=== PATIENT | female | born 1950 | race Caucasian/White ===

== ENCOUNTER 2023-12-29 07:56 | Outpatient (REF) | payer MEDICARE, OTHER, SELFPAY | END 2023-12-29 07:57 | disposition home or self-care (01) | LOC: HO.SH 07:56 | PROVIDERS: PCP Internal Medicine; Visit Provider Physician Assistant | DX: Z01.118 Encounter for examination of ears and hearing with other abnormal findings (principal); H90.3 Sensorineural hearing loss, bilateral | CPT/HCPCS: 92557 ==

== ENCOUNTER 2024-11-28 09:46 | Outpatient (REF) | payer MEDICARE, OTHER, SELFPAY ==
--- OUTSIDE RECORDS SUMMARY | 2024-11-28 10:33 | XMS_ITS | Encounter Summary ---
Author Organization [facility] [place] [address] Care Team Providers Care Sewer [employer] Cutter [employer]inger [employer] Material Name Role Phone Lu Vera MD Primary Care Provider [phone] Reason for Visit * Imaging (Routine) - Closed Specialty Diagnoses / Procedures Referred By Consuelo t Referred To Contact Radiology Diagnoses Encounter for screening mammogram for breast cancer Procedures MG Mammo Digital Screening w Dhiraj bilat MG Mammo Digital Screening w Dhiraj bilat Lu Vera MD [address] [place] [id number] Phone: tel: fax: [facility] Referral ID Status Reason Start Date Expiration Date Visits Re quested Visits Authorized [id number] Closed 08/04/2024 08/04/2025 1 1 Encounter Details Date Type Department Care Team (Latest Contact Info) Description 11/09/2024 10:00 AM EST - 11/09/2024 11:59 PM [facility] Hospital Encounter Radiology Department - [address] [address] Encounter for screening mammogram for breast cancer Discharge Disposition: Home or Self Care Social History Tobacco Use Types Packs/Day Years Used Date Smoking Tobacco: Former Cigarettes Q uit: 10/19/1973 Smokeless Tobacco: Never Alcohol Use Standard Drinks/Week Comments No 0 (1 standard drink = 0.6 oz pur e alcohol) Housing Instability Answer Date Recorde d Are you worried that in the next 2 months you may not have stable housing? No 09/19/2024 Food Access & Nutrition Answer Date Rec orded Do you have access to a vari ety of food including fruits and vegetables? Yes 09/19/2024 Access to Healthcare Answer Date Record ed Within the last 3 months, ho w many times did you visit the emergency department for your medical care? 0 09/19/2024 Health Literacy Answer Date Recorded How often do you need to hav e someone help you when you read instructions, pamphlets, or other written material from your doctor or pharmacy? Never 09/19/2024 Caregiver: How often do you need to have someone help you when you read instructions, pamphlets, or other written material from your doctor or pharmacy? Not on file 09/19/2024 Financial Risk Answer Date Recorded How hard is it for you to pa y for the very basics like food, housing, medical care, and air conditioning / heating? Not very hard 09/19/2024 Transportation Answer Date Recorded Has the lack of transportati on kept you from meetings, work, or from getting things needed for daily living? No Has the lack of transportati on kept you from medical appointments or from getting medications? No 09/19/2024 Social Isolation Answer Date Recorded How often do you feel lonely or isolated from th ose around you? Never 09/19/2024 Food Risk Answer Date Recorded Within the past 12 months we worried whether our food would run out before we got money to buy more. Never true 09/19/2024 Within the past 12 months th e food we bought just didn't last and we didn't have money to get more. Never true 09/19/2024 Dependent Care Answer Date Recorded Do you need help finding or paying for care for your loved ones. For example, child psychology teacher or elderly care for an older adult? No 09/19/2024 Education Answer Date Recorded Do you think completing more education or training, like finishing a GED, going to college, or learning a trade, would be helpful for you? No 09/19/2024 Employment and Income Answer Date Recor ded During the last four weeks, have you been actively looking for work? No 09/19/2024 Living Situation Answer Date Recorded What is your living situation? 1 11/20/2023 Comments No Sex and Gender Information Value Date Recorded Sex Assigned at Not on file Legal Sex Female 10:44 AM EST Gender Identity Not on file Sexual Orientation Not on file documented as of this encounter Discharge Disposition Disposition Code Departure Means Destination Home or Self Care documented in this encounter Plan of Treatment Upcoming Encounters Date Type Department Care Team ([facility] st Contact Info) Description 02/17/2025 8:45 AM EDT Office Visit [place]st[place]s [place] [facility] [address] [place] [address] Jeannette Snow, MARIBELL [address] [place] [address] 02/27/2025 2:00 PM EDT Appointment [facility] [address] [place] [phone] Vladimir Chance DO [address] [facility] [address] [place] [address] documented as of this encounter Procedures Procedure Name Priority Date/Time Associated Diagnosis Comments MG MAMMO DIGITAL SCREENING W DHIRAJ BILAT Routine 11/09/2024 10:05 AM EST Encounter for screening mammogram for breast cancer documented in this encounter Results * MG Mammo Digital Screening w Dhiraj bilat (11/09/2024 10:05 AM EST) Anatomical Region Laterality Modality Breast Bilateral Mammography 11/09/2024 12:0 7 PM EST Impressions 11/09/2024 12:11 PM EST BILATERAL BREASTS: Benign, no evidence of malignancy. Normal interval follow-up is recommended in 12 months. BREAST DENSITY: B - There are scattered areas of fibroglandular density. BI-RADS CATEGORY: 2 - BENIGN RECOMMENDATION: Screening bilateral mammogram is recommended in 1 year. Mammo Location: [facility], [address] [place] [address], [id number], . -------- FINAL REPORT -------- Dictated By: Ayad Brantley Dictated Date: 11/09/2024 12:07 ET Assigned Physician: Ayad Brantley Reviewed and Electronically Signed By: Ayad Brantley Signed Date: 11/09/2024 12:11 ET Workstation ID: [id number] Transcribed By: Self Edit Transcribed Date: 11/09/2024 12:07 ET Narrative 11/09/2024 12:11 PM EST STUDY: Bilateral screening mammography with tomosynthesis and CAD History: Personal history of left lumpectomy for breast cancer in 2002. TECHNIQUE: Bilateral full-field digital screening mammography is obtained and read in conjunction with computer-aided detection. ??Tomosynthesis as well as 2-D C view imaging were obtained. ?? COMPARISON: Comparison made to multiple prior, most recent October 29, 2023, and most remote September 12, 2015. RIGHT BREAST: No significant masses, suspicious calcifications or other abnormalities are seen. LEFT BREAST: ??Post lumpectomy changes. No significant masses, suspicious calcifications or other abnormalities are seen. Procedure Note Ayad Brantley MD - 11/09/2024 STUDY: Bilateral screening mammography with tomosynthesis and CAD History: Personal history of left lumpectomy for breast cancer in 2002. TECHNIQUE: Bilateral full-field digital screening mammography is obtainedand read in conjunction with computer-aided detection. Tomosynthesis aswell as 2-D C view imaging were obtained. COMPARISON: Comparison made to multiple prior, most recent October, and most remote September 12, 2015. RIGHT BREAST: No significant masses, suspicious calcifications or otherabnormalities are seen. LEFT BREAST: Post lumpectomy changes. No significant masses, suspiciouscalcifications or other abnormalities are seen. IMPRESSION: BILATERAL BREASTS: Benign, no evidence of malignancy. Normal intervalfollow-up is recommended in 12 months. BREAST DENSITY: B - There are scattered areas of fibroglandular density. BI-RADS CATEGORY: 2 - BENIGN RECOMMENDATION: Screening bilateral mammogram is recommended in 1 year. Mammo Location: [facility], [address] [place] [address], [id number], . -------- FINAL REPORT -------- Dictated By: Ayad Brantley Dictated Date: 11/09/2024 12:07 ET Assigned Physician: Ayad Brantley Reviewed and Electronically Signed By: Ayad Brantley Signed Date: 11/09/2024 12:11 ET Workstation ID: [id number] Transcribed By: Self Edit Transcribed Date: 11/09/2024 12:07 ET Lu Vera MD IMG BI PROCEDURES Final Result documented in this encounter Visit Diagnoses Diagnosis Encounter for screening mammogram for breast cancer documented in this encounter Additional Health Concerns Assessment Noted Time PHQ-9 Depression Total Score: 0 09/19/20 24 4:41 PM EST documented as of this encounter Care Teams Sewer And Cutter Finger Buff Material Relationship Specialty Start Date End Date Lu Vera MD [address] [place] [address] PCP - General 08/10/00 documented as of this encounter
--- OUTSIDE RECORDS SUMMARY | 2024-11-28 10:33 | XMS_ITS | Clinical Summary ---
Author Organization [facility] [address] [place] [address] Address [address] [place], [place] Phone Care Team Providers Care Business Support Professional Name Role Phone Lu Vera MD Primary Care Provider [phone] Allergies Active Allergy Reactions Criticality Noted Date Comments Oxycodone-Aspirin 12/08/2005 Medications No known medications Active Problems Problem Noted Date Diagnosed Date History of carcinoma in situ of breast Overview (09/22/2024): 2007 BRCA negative 10/18/13 Thyroid nodule 11/11/2013 Goiter 11/10/2013 Intramural leiomyoma of uterus 04/09/2007 Chronic neck pain 12/08/2005 Encounters Date Type Department Care Team Description 11/09/2024 10:00 AM EST - 11/09/2024 11:59 PM EST Hospital Encounter Radiology Department - [address] [phone] Encounter for screening mammogram for breast cancer Discharge Disposition: Home or Self Care 10/17/2024 Telephone Gastroenterology [facility] [address] [place] [address] Trae Montero MD SPECIAL PROCEDURE 09/26/2024 4:00 PM EST - 09/26/2024 11:59 PM EST Hospital Encounter Radiology Department - [address] [phone] Goiter Discharge Disposition: Home or Self Care 09/22/2024 2:00 PM EST Office Visit Adult Medicine [address] [phone] Lu Vera MD Routine general medical examination at a health care facility (Primary Dx); Goiter; Screen for colon cancer; History of carcinoma in situ of breast from Last 3 Months Immunizations Name Administration Dates Next Due Influenza Quadravalent, 0.5m l (Fluzone High-dose) 65yo and older 08/20/2022 Influenza Quadravalent, MDCK , 0.5ml, preservative free (Flucelvax) 6mo and older 09/05/2021 Influenza trivalent, 0.5mL (Fluad) 65yo and olde r 09/22/2024,08/15/2021 Moderna (age 6mo & older) Bi valent, COVID-19, 0.5 mL or 0.25 mL dosage 08/19/2022 Pfizer (ages 12 & older) Bivalent, COVID-19 11/2021 Tdap Tetanus diptheria acell ular pertussis (Boostrix; Adacel) 7yo and older 05/01/2010 Surgical History Surgery Date Site/Laterality Comments OTHER SURGICAL HISTORY 2009 hysteroscopy - Polyps COLONOSCOPY 06/29/2003 Negative examination BREAST LUMPECTOMY 2002 Left dcis BREAST BIOPSY 2017 Right neg COLONOSCOPY 01/2014 SCREENING MAMMOGRAM 10/23/2022 Bilateral Medical History Medical History Date Comments Cervicalgia Thyroid nodule 11/11/2013 History of carcinoma in situ of breast 4 2007 Family History Medical History Relation Name Comments Breast cancer Aunt 1 paternal congential janelle fness Breast cancer Aunt 2 maternal second primary at age 88, 2 maternal aunts; Crohns CABG Father multiple MIs; A FIB Lung cancer Maternal Grandfather Other: sepsis Maternal Grandmother Breast cancer Mother second primary at age 66; HTN Heart attack Paternal Grandfather Relation Name Status Comments Aunt 1 paternal Aunt 2 maternal Brother x 1 Alive Father Maternal Grandfather Maternal Grandmother Mother Paternal Grandfather Paternal Grandmother Sister x 1 Alive Social History Tobacco Use Types Packs/Day Years Used Date Smoking Tobacco: Former Cigarettes Q uit: 10/19/1973 Smokeless Tobacco: Never Tobacco Cessation:Counseling Given: Not Answered Alcohol Use Standard Drinks/Week Comments No 0 [...] for your loved ones. For example, child care teacher or elderly care for an older [...] on file Sexual Orientation Not on file Obstetrics History Para Term AB IAB SAB Ectopic Multiple Livin g Live Births 4 4 4 4 Date Outcome GA Total Labor Labor/2nd/3rd Weight Sex Type Anes PTL Angelic A1 A5 Name Clin Term Term Term Term Last Filed Vital Signs Vital Sign Reading Time Taken Comments Blood Pressure 134/82 09/22/2024 2:31 PM EST Pulse 94 09/22/2024 2:11 PM EST Temperature 36.7 ??C (98.1 ??F) 09/22/2024 2:11 PM ES T Respiratory Rate 14 09/22/2024 2:11 PM EST Oxygen Saturation 95% 09/22/2024 2:11 PM EST Inhaled Oxygen Concentration - - Weight 62.4 kg (137 lb 8 oz) 09/22/2024 2:11 PM EST Height 160 cm (5' 3 ) 09/22/2024 2:11 PM EST Body Mass Index 24.36 09/22/2024 2:11 PM EST Plan of Treatment Upcoming Encounters Date Type Department Care Team (Late st Contact Info) Description 02/17/2025 8:45 AM EDT Office Visit Obstetrics and Gynecology - [id number] [place] [address] Jeannette Snow, [facility] [address] [place], [place] 02/27/2025 2:00 PM EDT Appointment [facility] [address] [place] [address] Vladimir Chance DO [address] [phone] Health Maintenance Due Date Last Done Comments Pneumococcal Vaccine: 50+ Years (1 of 2 - PCV) 1971 Zoster Vaccines (1 of 2) 1971 Colorectal Cancer Screening: Colonoscopy 02/10/2024 02/09/2014, 02/09/2014 Falls Risk Assessment 09/03/2024 09/03/2023 Medicare Annual Wellness Visit 09/03/2024 09/03/2023 DTaP,Tdap,and Td Vaccines (3 - Td or Tdap) 04/21/2025 10/22/2024, 05/01/2010 Depression Screening 09/19/2025 09/19/2024, 09/03/20 Social Influencers of Health Screening 09/19/2025 09/19/2024 Breast Cancer Screening 11/09/2026 11/09/19, 10/29/2023, 10/23/2022, Additional history exists RSV Immunization Patients 60+ Years Old (1 - 1-dose 75+ series) 2027 Cholesterol Screening (Lipid Panel) 09/14/2028 09/14/2023 Osteoporosis Screening (Bone Density Screening) 11/13/2033 11/13/2023, 02/19/2018 Hepatitis C Screening Completed 11/10/2013 Influenza Vaccine Completed 09/22/2024, , 09/05/2021, Additional history exists COVID-19 Vaccine Completed 10/22/2024, , 08/20/2022, Additional history exists HIB Vaccines Aged Out No longer eligi ble based on patient's age to complete this topic HPV Vaccines Aged Out No longer eligi ble based on patient's age to complete this topic Hepatitis A Vaccines Aged Out No long er eligible based on patient's age to complete this topic Hepatitis B Vaccines Aged Out No long er eligible based on patient's age to complete this topic IPV Vaccines Aged Out No longer eligi ble based on patient's age to complete this topic MMR Vaccines Aged Out No longer eligi ble based on patient's age to complete this topic Meningococcal ACWY Vaccine Aged Out N o longer eligible based on patient's age to complete this topic Meningococcal B Vacine Aged Out No lo nger eligible based on patient's age to complete this topic RSV Immunization Patients Under 20 months Aged Out No longer eligible based on patient's age to complete this topic Varicella Vaccines Aged Out No longer eligible based on patient's age to complete this topic Procedures Procedure Name Priority Date/Time Associated Diagnosis Comments MG MAMMO DIGITAL SCREENING W DHIRAJ BILAT Routine 11/09/2024 10:05 AM EST Encounter for screening mammogram for breast cancer US HEAD NECK SOFT TISSUE Routine 09/26/2024 6:19 PM EST Goiter CBC WITH AUTO DIFFERENTIAL Routine 09/26/2024 9:08 AM EST Screen for colon cancer History of carcinoma in situ of breast THYROID STIMULATING HORMONE Routine 09/26/2024 9:08 AM EST Goiter BASIC METABOLIC PANEL Routine 09/26/2024 9:08 AM EST Routine general medical examination at a [facility] care facility CBC AND DIFFERENTIAL Routine 09/26/2024 9:08 AM EST Screen for colon cancer History of carcinoma in situ of breast DXA BONE DENSITY STUDY 1+ SITS AXIAL SKEL Routine 11/13/2023 4:00 PM EST Asymptomatic menopausal state LIPID PANEL Routine 09/14/2023 HM DEPRESSION SCREENING Routine 09/03/2023 FALLS RISK ASSESSMENT Routine 09/03/2023 COLONOSCOPY Routine 02/09/2014 HEPATITIS C SCREENING Routine 11/10/2013 from Last 3 Months or Most Recently Relevant to Health Maintenance Results * MG Mammo Digital Screening w [...] is recommended in 1 year. Mammo Location: [facility], [address] [place] [address], [id number], . -------- FINAL REPORT -------- Dictated By: Ayad Brantley Dictated Date: 11/09/2024 12:07 ET Assigned Physician: Ayad Brantley Reviewed and Electronically Signed By: Ayad Brantley Signed Date: 11/09/2024 12:11 ET Workstation ID: [id number] Transcribed By: Self Edit Transcribed Date: 11/09/2024 [...] is recommended in 1 year. Mammo Location: [facility], [address] [place] [address], [id number], . -------- FINAL REPORT -------- Dictated By: Ayad Brantley Dictated Date: 11/09/2024 12:07 ET Assigned Physician: Ayad Brantley Reviewed and Electronically Signed By: Ayad Brantley Signed Date: 11/09/2024 12:11 ET Workstation ID: [id number] Transcribed By: Self Edit Transcribed Date: 11/09/2024 12:07 ET us Lu Vera MD IMG BI PROCEDURES Final Result * US Head Neck Soft Tissue (09/26/2024 6:19 PM EST) Anatomical Region Laterality Modality Head and Neck Ultrasound 09/26/2024 6:30 PM EST Impressions 09/26/2024 6:33 PM EST 6.1 x 2.4 x 4.3 cm right thyroid nodule has decreased slightly in size since the previous study. -------- FINAL REPORT -------- Dictated By: Arabella Doty Dictated Date: 09/26/2024 18:30 ET Assigned Physician: Arabella Doty Reviewed and Electronically Signed By: Arabella Doty Signed Date: 09/26/2024 18:33 ET Workstation ID: [id number] Transcribed By: Self Edit Transcribed Date: 09/26/2024 18:30 ET Narrative 09/26/2024 6:33 PM EST US HEAD NECK SOFT TISSUE THYROID SOFT TISSUES NECK HISTORY: ??Thyroid nodule follow-up. Prior: Thyroid ultrasound 10/26/2023. FINDINGS: The thyroid gland is heterogeneous in echotexture. 6.1 x 2.4 x 4.3 cm nodule right lobe, previously 6.0 x 3.5 x 4.9 cm. No nodule is identified in the left lobe of the thyroid. The right lobe of the thyroid measures 6.2 x 3.7 x 4.6 cm. ??The left lobe of the thyroid measures 3.1 x 0.7 x 1.3 cm. ??The thyroid isthmus measures 5 mm in thickness. Procedure Note Arabella Doty MD - 09/26/2024 US HEAD NECK SOFT TISSUE THYROID SOFT TISSUES NECK HISTORY: Thyroid nodule follow-up. Prior: Thyroid ultrasound 10/26/2023. FINDINGS: The thyroid gland is heterogeneous in echotexture. 6.1 x 2.4 x 4.3 cm nodule right lobe, previously 6.0 x 3.5 x 4.9 cm. No nodule is identified in the left lobe of the thyroid. The right lobe of the thyroid measures 6.2 x 3.7 x 4.6 cm. The left lobeof the thyroid measures 3.1 x 0.7 x 1.3 cm. The thyroid isthmus measures5 mm in thickness. IMPRESSION: 6.1 x 2.4 x 4.3 cm right thyroid nodule has decreased slightly in sizesince the previous study. -------- FINAL REPORT -------- Dictated By: Arabella Doty Dictated Date: 09/26/2024 18:30 ET Assigned Physician: Arabella Doty Reviewed and Electronically Signed By: Arabella Doty Signed Date: 09/26/2024 18:33 ET Workstation ID: [id number] Transcribed By: Self Edit Transcribed Date: 09/26/2024 18:30 ET us Lu Vera MD IM US PROCEDURES Final Result * (ABNORMAL) CBC auto differential (09/26/2024 9:08 AM EST) WBC 5.2 4.8 - 10.8 K/[facility] LAB HEMETOLOGY METHOD 09/26/2024 2:02 PM EST [facility] RBC 4.90(H) 3.80 - 4.80 M/[facility] LAB HEMETOLOGY METHOD 09/26/2024 2:[address] [facility] Hemoglobin 14.6 11.5 - 16.0 g/dL LAB HEMETOLOGY METHOD 09/26/2024 2:[address] [facility] Hematocrit 44.9 35.0 - 47.0 % LAB HEMETOLOGY METHOD 09/26/2024 2:[address] [facility] MCV 92.0 79.0 - 98.0 FL LAB HEMETOLOGY METHOD 09/26/2024 2:[address] [facility] MCH 29.9 27.0 - 32.0 pcg LAB HEMETOLOGY METHOD 09/26/2024 2:[address] [facility] MCHC 32.5 32.0 - 37.0 g/dL LAB HEMETOLOGY METHOD 09/26/2024 2:[address] [facility] RDW 12.5 11.0 - 15.0 % LAB HEMETOLOGY METHOD 09/26/2024 2:[address] [facility] Platelets 09/26/2024 2:[address] [facility] Comment:Not measured. Unable to quantitate due to platelet clumping MPV 11.7(H) 7.0 - 11.0 FL LAB HEMETOLOGY METHOD 09/26/2024 2:[address] [facility] NRBC 0.0 <1.0 % LAB HEMETOLOGY METHOD 09/26/2024 2:[address] [facility] NRBC Absolute 0.00 <0.10 K/mcL LAB HEMETOLOGY METHOD 09/26/2024 2:[address] [facility] Neutrophils Relative 54.5 % LAB HEMETOLOGY METHOD 09/26/2024 2:[address] [facility] Lymphocytes Relative 29.9 % LAB HEMETOLOGY METHOD 09/26/2024 2:[address] [facility] Monocytes Relative 12.5 % LAB HEMETOLOGY METHOD 09/26/2024 2:[address] [facility] Eosinophils Relative 2.3 % LAB HEMETOLOGY METHOD 09/26/2024 2:[address] [facility] Basophils Relative 0.4 % LAB HEMETOLOGY METHOD 09/26/2024 2:[address] [facility] Immature Granulocytes Relative 0.4 % LAB HEMETOLOGY METHOD 09/26/2024 2:[address] [facility] Neutrophils Absolute 2.82 1.50 - 7.00 K/mcL LAB HEMETOLOGY METHOD 09/26/2024 2:[address] [facility] Lymphocytes Absolute 1.55 1.00 - 5.00 K/mcL LAB HEMETOLOGY METHOD 09/26/2024 2:[address] [facility] Monocytes Absolute 0.65 0.20 - 1.00 K/mcL LAB HEMETOLOGY METHOD 09/26/2024 2:[address] [facility] Eosinophils Absolute 0.12 0.00 - 0.50 K/mcL LAB HEMETOLOGY METHOD 09/26/2024 2:[address] [facility] Basophils Absolute 0.02 0.00 - 0.20 K/mcL LAB HEMETOLOGY METHOD 09/26/2024 2:[address] [facility] Immature Granulocytes Absolute 0.02 0.00 - 0.03 K/mcL LAB HEMETOLOGY METHOD 09/26/2024 2:[address] [facility] Blood Venous blood specimen / Unknown Venipuncture / Unknown 09/26/2024 9:08 AM EST 09/26/2024 9:08 AM EST us Lu Vera MD LAB BLOOD ORDERABLES Final Resul t [facility] [address] [place] [address], * Thyroid stimulating hormone (09/26/2024 9:08 AM EST) TSH 2.25 0.40 - 4.00 mcIU/mL LAB CHEMISTRY METHOD 09/26/2024 1:[address] [facility] Blood Venous blood specimen / Unknown Venipuncture / Unknown 09/26/2024 9:08 AM EST 09/26/2024 9:08 AM EST us Lu Vera MD LAB BLOOD ORDERABLES Final Resul t [facility] [address] [place] [address], [place] [phone] * (ABNORMAL) Basic metabolic panel (09/26/2024 9:08 AM EST) Pathologist [facility] Sodium 143 133 - 145 mmol/L LAB CHEMISTRY METHOD 09/26/2024 1:[address] [facility] Potassium 4.3 3.5 - 5.5 mmol/L LAB CHEMISTRY METHOD 09/26/2024 1:[address] [facility] Chloride 109 96 - 110 mmol/L LAB CHEMISTRY METHOD 09/26/2024 1:[address] [facility] CO2 29 21 - 32 mmol/L LAB CHEMISTRY METHOD 09/26/2024 1:[address] [facility] Anion Gap 5 3 - 11 LAB CHEMISTRY METHOD 09/26/2024 1:[address] [facility] Glucose 103(H) 70 - 100 mg/dL LAB CHEMISTRY METHOD 09/26/2024 1:[address] [facility] BUN 15 5 - 25 mg/dL LAB CHEMISTRY METHOD 09/26/2024 1:[address] [facility] Creatinine 0.72 0.50 - 1.10 mg/dL LAB CHEMISTRY METHOD 09/26/2024 1:[address] [facility] eGFR 89 >=60 mL/min/1. 73m2 LAB CHEMISTRY METHOD 09/26/2024 1:[address] [facility] Comment:Calculation based on the??Chronic Kidney Disease Epidemiology Collaboration (CKD-EPI) equation refit??without adjustment for race. BUN/Creatinine Ratio 20.8 LAB CHEMISTRY METHOD 09/26/2024 1:[address] [facility] Calcium 9.9 8.5 - 10.5 mg/dL LAB CHEMISTRY METHOD 09/26/2024 1:[address] [facility] Blood Venous blood specimen / Unknown Venipuncture / Unknown 09/26/2024 9:08 AM EST 09/26/2024 9:08 AM EST us Lu Vera MD LAB BLOOD ORDERABLES Final Resul t [facility] [address] [place] [address], * DXA BONE DENSITY STUDY 1+ SITS AXIAL SKEL (11/13/2023 4:00 PM EST) Anatomical Region Laterality Modality Bone Densitometr y 09/03/2023 9:12 AM EST Narrative 11/17/2023 7:19 PM EST STUDY: ??DUAL ENERGY X-RAY ABSORPTIOMETRY / DXA REASON FOR EXAM: ?? Female, 73 years old ??menopausal/postmenopausal disorder TECHNIQUE: ?? Bone Mineral Density (BMD) measurements of the lumbar spine and left hip were obtained using [employer] Discovery W ([id number]/N [id number]). ?? COMPARISON: February 19, 2018 ?? FINDINGS: L1-L3-L4 BMD: 0.988 g/cm2 L1-L3-L4 T score: -0.6. ??This corresponds to Normal bone density. This represents a 3.1* % increase in bone density compared with prior exam from February 19, 2018. Left femoral neck BMD: 0.749 g/cm2 Left femoral neck T score: -0.9. ??This corresponds to Normal bone density. Left total hip BMD: 0.902 g/cm2 Left total hip T score: -0.3. ??This corresponds to Normal bone density. This represents a -0.2 % decrease in bone density compared with prior exam from February 19, 2018. * - Indicates a statistically significant change. IMPRESSION: IMPRESSION: Normal bone density Reference Information: The T-score is the number of standard deviations above or below the standard which is normal for young adults at their peak bone mineral density. The World Health Organization (WHO) interprets the T-scores as follows: At or above ??-1 SD ?Normal bone density Between -1 and -2.5 SD ??Osteopenia At or below -2.5 SD ?Osteoporosis Procedure Note Ayad Brantley MD - 06/06/2024 STUDY: DUAL ENERGY X-RAY ABSORPTIOMETRY / DXA REASON FOR EXAM: Female, 73 years old menopausal/postmenopausaldisorder TECHNIQUE: Bone Mineral Density (BMD) measurements of the lumbar spineand left hip were obtained using [employer] Discovery W ([id number]/N [id number]). COMPARISON: February 19, 2018 FINDINGS: L1-L3-L4 BMD: 0.988 g/cm2 L1-L3-L4 T score: -0.6. This corresponds to Normal bone density. This represents a 3.1* % increase in bone density compared with prior examfrom February 19, 2018. Left femoral neck BMD: 0.749 g/cm2 Left femoral neck T score: -0.9. This corresponds to Normal bonedensity. Left total hip BMD: 0.902 g/cm2 Left total hip T score: -0.3. This corresponds to Normal bone density. This represents a -0.2 % decrease in bone density compared with prior examfrom February 19, 2018. * - Indicates a statistically significant change. IMPRESSION: IMPRESSION: Normal bone density Reference Information: The T-score is the number of standard deviations above or below thestandard which is normal for young adults at their peak bone mineral density. The World HealthOrganization (WHO) interprets the T-scores as follows: At or above -1 SD Normal bone density Between -1 and -2.5 SD Osteopenia At or below -2.5 SD Osteoporosis Chelsea CARMONA IMG DXA PROCEDURES Final Resu lt * (ABNORMAL) Lipid panel (09/14/2023) [facility] LDL/HDL Ratio 3 0 - 4 Triglycerides 88 0 - 150 mg/dL Cholesterol 190 0 - 200 mg/dL HDL 60 >=40 mg/dL LDL Cholesterol 113(A) 0 - 100 mg/dL Blood Venous blood specimen / Unknown Result [facility] LAB BLOOD ORDERABLES Sujey l Result * Falls Risk Assessment (09/03/2023) [facility] Falls Risk Assessment ABSTRACTED Result [facility] Provider HEALTH MAINTENANCE Final Result * Depression Screening (09/03/2023) [facility] Depression Screening ABSTRACTED Result [facility] Provider HEALTH MAINTENANCE Final Result * Colonoscopy (02/09/2014) [facility] Colonoscopy no interpretation , abstracted Anatomical Region Laterality Modality Other Result [facility] Provider HEALTH MAINTENANCE Final Result * Hepatitis C Screening (11/10/2013) [facility] Hepatitis C Screening ABSTRACTED Result [facility] Provider HEALTH MAINTENANCE Final Result from Last 3 Months or Most Recently Relevant to Health Maintenance Insurance MEDICARE [facility] [address] [place] [address] Care Teams Business Support Professional Relationship Specialty Start Date End Date Lu Vera MD [address] [place] [address] PCP - General 08/10/00
--- NOTE | 2024-11-28 12:21 | MHC.AU.MED ---
Medical Clearance for Hearing Instrumentation Date: 11/28/24 Patient Name: Deepa Garcia Date of : 1950 Primary Care Provider: Referring Provider: Lu Vera MD We have seen your patient on 11/28/24 and have determined that they are a candidate for amplification (See accompanying report). Specifically, they would benefit from: Hearing aid use in both ears There is a statute that addresses Medical Evaluation Requirements prior to fitting a patient with a hearing aid. According to [place] statute 265 CMR:6.03(1), (a) General. Except as provided in 265 CMR 6.03(1)(b), a hearing aid assistant shall not sell a hearing aid unless the prospective user has presented to the hearing aid assistant a written statement signed by a licensed physician that states that the patient's hearing loss has been medically evaluated and the patient may be considered a candidate for a hearing aid. The medical evaluation must have taken place within the preceding six months. Please note: Due to the [place] Statute referenced above, we cannot accept a signature other than that of a licensed physician. [employer] and PA signatures cannot be accepted. I am in agreement with the above recommendation. There is no medical contraindication for hearing instrumentation. Physician Signature Date Physician Name (Printed)
== END 2024-11-28 09:47 | disposition home or self-care (01) ==
LOC: HO.SH 09:46
PROVIDERS: Visit Provider Internal Medicine
DX: Z01.118 Encounter for examination of ears and hearing with other abnormal findings (principal); H90.3 Sensorineural hearing loss, bilateral
CPT/HCPCS: 92552; 92556

== ENCOUNTER 2024-11-28 10:50 | Outpatient (REF) | payer SELFPAY | END 2024-11-28 10:51 | disposition home or self-care (01) | LOC: HO.HAP 10:50 | PROVIDERS: Visit Provider Internal Medicine | DX: Z46.1 Encounter for fitting and adjustment of hearing aid (principal); H90.3 Sensorineural hearing loss, bilateral | CPT/HCPCS: 92590 ==

== ENCOUNTER 2024-12-06 15:24 | Outpatient (REF) | payer SELFPAY ==
--- OUTSIDE RECORDS SUMMARY | 2024-12-06 16:16 | XMS_ITS | Clinical Summary ---
Author Organization [facility] [address] [place] [address] Address [address] [place], [place] Phone Care Team Providers Care Night Patrol Inspector Name Role Phone Lu Vera MD Primary Care Provider [phone] Allergies Active Allergy Reactions Criticality Noted Date [...] PM EST Hospital Encounter Radiology Department - [address] [phone] Encounter for screening mammogram for breast cancer Discharge Disposition: Home or Self Care 10/17/2024 Telephone Gastroenterology [facility] [address] [place] [address] Trae Montero MD SPECIAL PROCEDURE 09/26/2024 4:00 PM EST - 09/26/2024 11:59 PM EST Hospital Encounter Radiology Department - [address] [phone] Goiter Discharge Disposition: Home or Self Care 09/22/2024 2:00 PM EST Office Visit Adult Medicine [address] [phone] Lu Vera MD Routine general medical examination [...] care for your loved ones. For example, children's attendant or elderly care for an older adult? [...] EDT Office Visit Obstetrics and Gynecology - [address] [place] [address] Jeannette Snow, [facility] [address] [place], [place] 02/27/2025 2:00 PM EDT Appointment [facility] Endoscopy [address] [place] [address] Vladimir Chance DO [address] [address] Health Maintenance Due Date Last Done Comments Pneumococcal Vaccine: 50+ Years (1 of 2 - PCV) 1971 Zoster Vaccines (1 of 2) 1971 Colorectal Cancer Screening: Colonoscopy 02/10/2024 02/09/2014, 02/09/2014 Falls Risk Assessment 09/03/2024 09/03/2023 Medicare Annual Wellness Visit 09/03/2024 09/03/2023 Depression Screening 09/19/2025 09/19/2024, 09/03/20 Social Influencers of Health Screening 09/19/2025 09/19/2024 Breast Cancer Screening 11/09/2026 11/09/19, 10/29/2023, 10/23/2022, Additional history exists RSV Immunization Patients 60+ Years Old (1 - 1-dose 75+ series) 2027 Cholesterol Screening (Lipid Panel) 09/14/2028 09/14/2023 Osteoporosis Screening (Bone Density Screening) 11/13/2033 11/13/2023, 02/19/2018 DTaP,Tdap,and Td Vaccines (3 - Td or Tdap) 10/22/2034 10/22/2024, 05/01/2010 Hepatitis C Screening Completed 11/10/2013 Influenza Vaccine [...] EST Routine general medical examination at a [facility] care facility CBC AND DIFFERENTIAL Routine [...] is recommended in 1 year. Mammo Location: [facility], [address] [place] [address], [address], . -------- FINAL REPORT -------- Dictated By: Ayad Brantley Dictated Date: 11/09/2024 12:07 ET Assigned Physician: Ayad Brantley Reviewed and Electronically Signed By: Ayad Brantley Signed Date: 11/09/2024 12:11 ET Workstation ID: [id number] Transcribed By: Self Edit Transcribed Date: 11/09/2024 [...] is recommended in 1 year. Mammo Location: [facility], [address] [place] [address], [address], . -------- FINAL REPORT -------- Dictated By: Ayad Brantley Dictated Date: 11/09/2024 12:07 ET Assigned Physician: Ayad Brantley Reviewed and Electronically Signed By: Ayad Brantley Signed Date: 11/09/2024 12:11 ET Workstation ID: [id number] Transcribed By: Self Edit Transcribed Date: 11/09/2024 [...] -------- FINAL REPORT -------- Dictated By: Arabella Dtoy Dictated Date: 09/26/2024 18:30 ET Assigned Physician: Arabella Doty Reviewed and Electronically Signed By: Arabella Doty Signed Date: 09/26/2024 18:33 ET Workstation ID: [id number] Transcribed By: Self Edit Transcribed Date: 09/26/2024 [...] Signed Date: 09/26/2024 18:33 ET Workstation ID: [id number] Transcribed By: Self Edit Transcribed Date: 09/26/2024 18:30 ET us Lu Vera MD IM US PROCEDURES Final Result * (ABNORMAL) CBC auto differential (09/26/2024 9:08 AM EST) WBC 5.2 4.8 - 10.8 K/[facility] LAB HEMETOLOGY METHOD 09/26/2024 2:02 PM EST [facility] RBC 4.90(H) 3.80 - 4.80 M/[facility] LAB HEMETOLOGY METHOD 09/26/2024 2:02 PM [facility] Hemoglobin 14.6 11.5 - 16.0 g/dL LAB HEMETOLOGY METHOD 09/26/2024 2:02 PM [facility] Hematocrit 44.9 35.0 - 47.0 % LAB HEMETOLOGY METHOD 09/26/2024 2:02 PM [facility] MCV 92.0 79.0 - 98.0 FL LAB HEMETOLOGY METHOD 09/26/2024 2:02 PM [facility] MCH 29.9 27.0 - 32.0 pcg LAB HEMETOLOGY METHOD 09/26/2024 2:02 PM [facility] MCHC 32.5 32.0 - 37.0 g/dL LAB HEMETOLOGY METHOD 09/26/2024 2:02 PM [facility] RDW 12.5 11.0 - 15.0 % LAB HEMETOLOGY METHOD 09/26/2024 2:02 PM [facility] Platelets 09/26/2024 2:02 PM [facility] Comment:Not measured. Unable to quantitate due to platelet clumping MPV 11.7(H) 7.0 - 11.0 FL LAB HEMETOLOGY METHOD 09/26/2024 2:02 PM [facility] NRBC 0.0 <1.0 % LAB HEMETOLOGY METHOD 09/26/2024 2:02 PM [facility] NRBC Absolute 0.00 <0.10 K/mcL LAB HEMETOLOGY METHOD 09/26/2024 2:02 PM [facility] Neutrophils Relative 54.5 % LAB HEMETOLOGY METHOD 09/26/2024 2:02 PM [facility] Lymphocytes Relative 29.9 % LAB HEMETOLOGY METHOD 09/26/2024 2:02 PM [facility] Monocytes Relative 12.5 % LAB HEMETOLOGY METHOD 09/26/2024 2:02 PM [facility] Eosinophils Relative 2.3 % LAB HEMETOLOGY METHOD 09/26/2024 2:02 PM [facility] Basophils Relative 0.4 % LAB HEMETOLOGY METHOD 09/26/2024 2:02 PM [facility] Immature Granulocytes Relative 0.4 % LAB HEMETOLOGY METHOD 09/26/2024 2:02 PM [facility] Neutrophils Absolute 2.82 1.50 - 7.00 K/mcL LAB HEMETOLOGY METHOD 09/26/2024 2:02 PM [facility] Lymphocytes Absolute 1.55 1.00 - 5.00 K/mcL LAB HEMETOLOGY METHOD 09/26/2024 2:02 PM [facility] Monocytes Absolute 0.65 0.20 - 1.00 K/mcL LAB HEMETOLOGY METHOD 09/26/2024 2:02 PM [facility] Eosinophils Absolute 0.12 0.00 - 0.50 K/mcL LAB HEMETOLOGY METHOD 09/26/2024 2:02 PM [facility] Basophils Absolute 0.02 0.00 - 0.20 K/mcL LAB HEMETOLOGY METHOD 09/26/2024 2:02 PM [facility] Immature Granulocytes Absolute 0.02 0.00 - 0.03 K/mcL LAB HEMETOLOGY METHOD 09/26/2024 2:02 PM [facility] Blood Venous blood specimen / Unknown Venipuncture / Unknown 09/26/2024 9:08 AM EST 09/26/2024 9:08 AM EST us Lu Vera MD LAB BLOOD ORDERABLES Final Resul t [facility] [address] [place] [address], * Thyroid stimulating hormone (09/26/2024 9:08 AM EST) TSH 2.25 0.40 - 4.00 mcIU/mL LAB CHEMISTRY METHOD 09/26/2024 1:17 PM [facility] Blood Venous blood specimen / Unknown Venipuncture / Unknown 09/26/2024 9:08 AM EST 09/26/2024 9:08 AM EST us Lu Vera MD LAB BLOOD ORDERABLES Final Resul t [facility] [address] [place] [address], [place] [phone] * (ABNORMAL) Basic metabolic panel (09/26/2024 9:08 AM EST) Pathologist [facility] Sodium 143 133 - 145 mmol/L LAB CHEMISTRY METHOD 09/26/2024 1:06 PM [facility] Potassium 4.3 3.5 - 5.5 mmol/L LAB CHEMISTRY METHOD 09/26/2024 1:06 PM [facility] Chloride 109 96 - 110 mmol/L LAB CHEMISTRY METHOD 09/26/2024 1:06 PM [facility] CO2 29 21 - 32 mmol/L LAB CHEMISTRY METHOD 09/26/2024 1:06 PM [facility] Anion Gap 5 3 - 11 LAB CHEMISTRY METHOD 09/26/2024 1:06 PM [facility] Glucose 103(H) 70 - 100 mg/dL LAB CHEMISTRY METHOD 09/26/2024 1:06 PM [facility] BUN 15 5 - 25 mg/dL LAB CHEMISTRY METHOD 09/26/2024 1:06 PM [facility] Creatinine 0.72 0.50 - 1.10 mg/dL LAB CHEMISTRY METHOD 09/26/2024 1:06 PM [facility] eGFR 89 >=60 mL/min/1. 73m2 LAB CHEMISTRY METHOD 09/26/2024 1:06 PM EST [facility] Comment:Calculation based on the??Chronic Kidney Disease Epidemiology Collaboration (CKD-EPI) equation refit??without adjustment for race. BUN/Creatinine Ratio 20.8 LAB CHEMISTRY METHOD 09/26/2024 1:06 PM EST [facility] Calcium 9.9 8.5 - 10.5 mg/dL LAB CHEMISTRY METHOD 09/26/2024 1:06 PM EST [facility] Blood Venous blood specimen / Unknown Venipuncture / Unknown 09/26/2024 9:08 AM EST 09/26/2024 9:08 AM EST us Lu Vera MD LAB BLOOD ORDERABLES Final Resul t [facility] [address] [place] [address], * DXA BONE DENSITY STUDY 1+ SITS AXIAL SKEL (11/13/2023 4:00 PM EST) Anatomical Region Laterality Modality Bone Densitometr y 09/03/2023 9:12 AM EST Narrative 11/17/2023 7:19 PM EST STUDY: ??DUAL ENERGY X-RAY ABSORPTIOMETRY / DXA REASON FOR EXAM: ?? Female, 73 years old ??menopausal/postmenopausal disorder TECHNIQUE: ?? Bone Mineral Density (BMD) measurements of the lumbar spine and left hip were obtained using [employer] Discovery W (S/N [id number]). ?? COMPARISON: February 19, 2018 ?? FINDINGS: [...] lumbar spineand left hip were obtained using [employer] Discovery W (S/N [id number]). COMPARISON: February 19, 2018 FINDINGS: L1-L3-L4 BMD: [...] Resu lt * (ABNORMAL) Lipid panel (09/14/2023) [facility] LDL/HDL Ratio 3 0 - 4 Triglycerides 88 0 - 150 mg/dL Cholesterol 190 0 - 200 mg/dL HDL 60 >=40 mg/dL LDL Cholesterol 113(A) 0 - 100 mg/dL Blood Venous blood specimen / Unknown Result On license of [facility] LAB BLOOD ORDERABLES Sujey l Result * Falls Risk Assessment (09/03/2023) [facility] Falls Risk Assessment ABSTRACTED Result [facility] Provider HEALTH MAINTENANCE Final Result * Depression Screening (09/03/2023) [facility] Depression Screening ABSTRACTED Result [facility] Provider HEALTH MAINTENANCE Final Result * Colonoscopy (02/09/2014) [facility] Colonoscopy no interpretation , abstracted Anatomical Region Laterality Modality Other Result [facility] Provider HEALTH MAINTENANCE Final Result * Hepatitis C Screening (11/10/2013) [facility] Hepatitis C Screening ABSTRACTED Result [facility] Provider HEALTH MAINTENANCE Final Result from Last 3 Months or Most Recently Relevant to Health Maintenance Insurance MEDICARE [facility] [address] [place] [address] Care Teams Night Patrol Inspector Relationship Specialty Start Date End Date Lu Vera MD [address] [place] [address] PCP - General 08/10/00
--- OUTSIDE RECORDS SUMMARY | 2024-12-06 16:16 | XMS_ITS | Encounter Summary ---
Author Organization [facility] [place] [address] Care Team Providers Care Ramp Agent Name Role Phone Lu Vera MD Primary Care Provider [phone] Reason for Visit * Imaging (Routine) - Closed Specialty Diagnoses / Procedures Referred By Consuelo t Referred To Contact Radiology Diagnoses Encounter for screening mammogram for breast cancer Procedures MG Mammo Digital Screening w Dhiraj bilat MG Mammo Digital Screening w Dhiraj bilat Lu Vera MD [address] [place] [phone] Phone: tel: fax: [facility] Referral ID Status Reason Start Date Expiration Date Visits Re quested Visits Authorized [id number] Closed 08/04/2024 08/04/2025 1 1 Encounter Details Date Type Department Care Team (Latest Contact Info) Description 11/09/2024 10:00 AM EST - 11/09/2024 11:59 PM [facility] Hospital Encounter Radiology Department - [address] [phone] Encounter for screening mammogram for breast cancer [...] your loved ones. For example, child care associate teacher or elderly care for an older [...] Upcoming Encounters Date Type Department Care Team ([facility] st Contact Info) Description 02/17/2025 8:45 AM EDT Office Visit Obstetrics and Gynecology [facility] [address] [place] [address] Jeannette Snow, [place] [address] [place] [address] 02/27/2025 2:00 PM EDT Appointment [facility] Endoscopy [address] [place] [phone] Vladimir Chance DO 175 [facility] [address] [place] [address] documented as of this encounter Procedures Procedure [...] is recommended in 1 year. Mammo Location: [facility], [address] [place] [address], [address], . -------- FINAL REPORT -------- Dictated By: Ayad Brantley Dictated Date: 11/09/2024 12:07 ET Assigned Physician: Ayad Brantley Reviewed and Electronically Signed By: Ayad Brantley Signed Date: 11/09/2024 12:11 ET Workstation ID: [id number] Transcribed By: Self Edit Transcribed Date: 11/09/2024 [...] is recommended in 1 year. Mammo Location: [facility], [address] [place] [address], [address], . -------- FINAL REPORT -------- Dictated By: Ayad Brantley Dictated Date: 11/09/2024 12:07 ET Assigned Physician: Ayad Brantley Reviewed and Electronically Signed By: Ayad Brantley Signed Date: 11/09/2024 12:11 ET Workstation ID: [id number] Transcribed By: Self Edit Transcribed Date: 11/09/2024 12:07 ET Lu Vera MD IMG BI PROCEDURES Final Result documented in this encounter Visit Diagnoses Diagnosis Encounter for screening mammogram for breast cancer documented in this encounter Additional Health Concerns Assessment Noted Time PHQ-9 Depression Total Score: 0 09/19/20 24 4:41 PM EST documented as of this encounter Care Teams Ramp Agent Relationship Specialty Start Date End Date Lu Vera MD [address] [place] [address] PCP - General 08/10/00 documented as of this encounter
== END 2024-12-06 15:25 | disposition home or self-care (01) ==
LOC: HO.HAP 15:24
PROVIDERS: Visit Provider Internal Medicine
DX: Z46.1 Encounter for fitting and adjustment of hearing aid (principal); H90.3 Sensorineural hearing loss, bilateral
CPT/HCPCS: 92700; V5261; V5299

== ENCOUNTER 2024-12-29 13:59 | Outpatient (REF) | payer SELFPAY ==
--- OUTSIDE RECORDS SUMMARY | 2024-12-29 17:46 | XMS_ITS | Clinical Summary ---
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 BRCA negative 10/18/13 Thyroid nodule 11/11/2013 Goiter 11/10/2013 Intramural leiomyoma of uterus 04/09/2007 Chronic neck pain 12/08/2005 Encounters Date Type Department Care Team Description 11/09/2024 10:00 AM EST - 11/09/2024 11:59 PM [facility] Hospital Encounter Radiology Department - [address] [phone] Encounter for screening mammogram for breast cancer Discharge Disposition: Home or Self Care 10/17/2024 Telephone Gastroenterology - [place] [address] [facility] [address] [place] [address] Trae Montero MD SPECIAL PROCEDURE from Last 3 Months Immunizations Name Administration [...] Surgery Date Site/Laterality Comments OTHER SURGICAL HISTORY 2008 hysteroscopy - Polyps COLONOSCOPY 06/29/2003 Negative examination BREAST LUMPECTOMY 2002 Left dcis BREAST BIOPSY 2016 Right neg COLONOSCOPY 01/2014 SCREENING MAMMOGRAM 10/23/2022 Bilateral Medical History Medical History Date Comments Cervicalgia Thyroid nodule 11/11/2013 History of carcinoma in situ of breast 2007 Family History Medical History Relation Name [...] for your loved ones. For example, child life specialist or elderly care for an older adult? [...] EDT Office Visit Obstetrics and Gynecology - [place] [address] [place] [address] Jeannette Snow, [facility] [address] [place] [address] 02/27/2025 2:00 PM EDT Appointment [facility] Endoscopy [address] [place] [address] Vladimir Chance DO [address] [address] Health Maintenance Due Date Last Done Comments Pneumococcal Vaccine: 50+ Years (1 of 2 - PCV) 1971 Zoster Vaccines (1 of 2) 1971 Colorectal Cancer Screening: Colonoscopy 02/10/2024 02/09/2014, 02/09/2014 Falls Risk Assessment 09/03/2024 09/03/2023 Medicare Annual Wellness Visit 09/03/2024 09/03/2023 Depression Screening 09/19/2025 09/19/2024, 09/03/20 23 Social Influencers of Health Screening 09/19/2025 09/19/2024 Breast Cancer Screening 11/09/2026 11/09/19 25, 10/29/2023, 10/23/2022, Additional history exists RSV Immunization [...] Encounter for screening mammogram for breast cancer DXA BONE DENSITY STUDY 1+ SITS AXIAL SKEL Routine 11/13/2023 4:00 PM EST Asymptomatic menopausal state LIPID PANEL Routine 09/14/2023 DEPRESSION SCREENING Routine 09/03/2023 FALLS RISK ASSESSMENT [...] is recommended in 1 year. Mammo Location: [facility], [address] [place] [address], [address], . -------- FINAL REPORT -------- Dictated By: Ayad Brantley Dictated Date: 11/09/2024 12:07 ET Assigned Physician: Ayad Brantley Reviewed and Electronically Signed By: Ayad Brantley Signed Date: 11/09/2024 12:11 ET Workstation ID: [id number] Transcribed By: Self Edit Transcribed Date: 11/09/2024 [...] is recommended in 1 year. Mammo Location: [facility], [address] [place] [address], [address], . -------- FINAL REPORT -------- Dictated By: Ayad Brantley Dictated Date: 11/09/2024 12:07 ET Assigned Physician: Ayad Brantley Reviewed and Electronically Signed By: Ayad Brantley Signed Date: 11/09/2024 12:11 ET Workstation ID: [id number] Transcribed By: Self Edit Transcribed Date: 11/09/2024 12:07 ET Lu Vera MD IM BI PROCEDURES Final Result * DXA BONE DENSITY STUDY 1+ SITS AXIAL SKEL (11/13/2023 4:00 PM EST) Anatomical Region Laterality Modality Bone Densitometr y 09/03/2023 9:12 AM EST Narrative 11/17/2023 7:19 PM EST STUDY: ??DUAL ENERGY X-RAY ABSORPTIOMETRY / DXA REASON FOR EXAM: ?? Female, 73 years old ??menopausal/postmenopausal disorder TECHNIQUE: ?? Bone Mineral Density (BMD) measurements of the lumbar spine and left hip were obtained using [employer] Discovery W (S/N [id number]). ?? COMPARISON: February 19, 2018 ?? FINDINGS: [...] lumbar spineand left hip were obtained using [employer] Discovery W (S/N [id number]). COMPARISON: February 19, 2018 FINDINGS: L1-L3-L4 BMD: [...] Resu lt * (ABNORMAL) Lipid panel (09/14/2023) [facility] LDL/HDL Ratio 3 0 - 4 Triglycerides 88 0 - 150 mg/dL Cholesterol 190 0 - 200 mg/dL HDL 60 >=40 mg/dL LDL Cholesterol 113(A) 0 - 100 mg/dL Blood Venous blood specimen / Unknown Historical Provider LAB BLOOD ORDERABLES Sujey l Result * Falls Risk Assessment (09/03/2023) [facility] Falls Risk Assessment ABSTRACTED Historical Provider HEALTH MAINTENANCE Final Result * Depression Screening (09/03/2023) [facility] Depression Screening ABSTRACTED Historical Provider HEALTH MAINTENANCE Final Result * Colonoscopy (02/09/2014) Colonoscopy no interpretation , abstracted Anatomical Region Laterality Modality Other Historical Provider HEALTH MAINTENANCE Final Result * Hepatitis C Screening (11/10/2013) Hepatitis C Screening ABSTRACTED Historical Provider HEALTH MAINTENANCE Final Result from Last 3 Months or Most Recently Relevant to Health Maintenance Insurance MEDICARE [facility] [address] [place] [address] Care Teams Membership Coordinator Relationship Specialty Start Date End Date Lu Vera MD [address] [place] [phone] PCP - General 08/10/00
== END 2024-12-29 14:00 | disposition home or self-care (01) ==
LOC: HO.HAP 13:59
PROVIDERS: Visit Provider Internal Medicine
DX: Z13.89 Encounter for screening for other disorder (principal)